=== PATIENT | male | born 1980 | race Caucasian/White ===

== ENCOUNTER → 2020-08-22 | Outpatient (CLI) | payer OTHER | LOC: MRI 09:41 | PROVIDERS: ATTEND Family Medicine | DX: S93.402A Sprain of unspecified ligament of left ankle, initial encounter (principal); Z04.2 Encounter for examination and observation following work accident ==

== ENCOUNTER 2020-09-12 10:58 | Outpatient (RCR) | payer OTHER | END 2020-10-05 | LOC: PT 10:58 | PROVIDERS: ATTEND Specialist | DX: S93.402A Sprain of unspecified ligament of left ankle, initial encounter (principal); M25.672 Stiffness of left ankle, not elsewhere classified; M62.81 Muscle weakness (generalized) ==